=== PATIENT | female | born 1990 | race Caucasian/White ===

== ENCOUNTER 2019-09-06 21:12 | Emergency (ER) | payer SELFPAY ==
[~2019-09-06] VITALS: Ht 162.6 cm; Wt 53.5 kg
--- NOTE | 2019-09-06 21:15 | NUR ---
UPON EM,S ARRIVAL PT AAOX4. RECEIVED PT AAOX4, NAD. DENIES SI OR HI. VSS AT THIS TIME. 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
--- NOTE | 2019-09-06 22:54 | NUR ---
NO URINE OBTAINED. PEDIATRIC ACUTE CARE UNIT NURSE MADE AWARE
[2019-09-06 23:25] VITALS: BP 121/67
--- NOTE | 2019-09-06 23:25 | NUR ---
Patient discharged to home in stable condition. Written and verbal after care instructions given. Patient verbalizes understanding of instruction.
== END 2019-09-06 23:26 | disposition home or self-care (01) ==
LOC: ER 21:13
DX: T40.601A Poisoning by unspecified narcotics, accidental (unintentional), initial encounter (principal); R11.10 Vomiting, unspecified; Y92.89 Other specified places as the place of occurrence of the external cause

== ENCOUNTER 2019-09-21 15:47 | Emergency (ER) | payer SELFPAY ==
[~2019-09-21] VITALS: Ht 162.6 cm; Wt 54.4 kg
[2019-09-21 16:10] VITALS: BP 118/61
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
== END 2019-09-21 16:39 | disposition home or self-care (01) ==
LOC: ER 15:47
DX: S16.1XXA Strain of muscle, fascia and tendon at neck level, initial encounter (principal); F07.81 Postconcussional syndrome; V49.49XA Driver injured in collision with other motor vehicles in traffic accident, initial encounter; Y93.89 Activity, other specified; Y92.488 Other paved roadways as the place of occurrence of the external cause; Y99.8 Other external cause status